=== PATIENT | male | born 1990 | race Caucasian/White ===

== ENCOUNTER 2021-08-30 17:18 | Emergency (ER) | payer BC, SELFPAY ==
--- NOTE | ~2021-08-30 | XR_ITS ---
EXAM: XR shoulder LT min 2V DATE: 08/30/2021 17:45 HISTORY: FALL, LT SHOULDER PAIN,STATES POP IT PLACE . COMPARISON: None available. FINDINGS: Normal mineralization. Mild superior displacement of the distal clavicle relative to the a cromion. No fracture. No lytic or blastic lesion. Joint spaces are maintained. No erosion or perioste al change. Soft tissues within normal limits. IMPRESSION: Slight superior displacement of the distal clavicle, may represent a low-grade AC sprain, particularly if accompanied by point tenderness. Reviewed, dictated and finalized at location K.
[2021-08-30 17:31] VITALS: BP 120/83; PULSE 70; RESP 16; TEMP 36.7; O2SAT 99
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
== END 2021-08-30 18:22 | disposition home or self-care (01) ==
PROVIDERS: Emergency Provider Nurse Practitioner Family
DX: S43.005A Unspecified dislocation of left shoulder joint, initial encounter (principal); V18.4XXA Pedal cycle driver injured in noncollision transport accident in traffic accident, initial encounter
CPT/HCPCS: 73030; 99214; A4565; G0463